=== PATIENT | female | born 1985 | race Caucasian/White ===

== ENCOUNTER → 2019-03-09 12:17 | Outpatient (BNVA) | payer SELFPAY | PROVIDERS: Visit Provider Nurse Practitioner Family | DX: Z34.90 Encounter for supervision of normal pregnancy, unspecified, unspecified trimester (principal) | CPT/HCPCS: 81025; 84703 ==

== ENCOUNTER 2019-12-02 23:18 | Inpatient (IN) | payer SELFPAY ==
[2019-12-02 23:25] VITALS: BP 138/91; PULSE 84; RESP 18; TEMP 37; O2SAT 99; BMI 23.8
[2019-12-02 23:50] LABS: Basophils # 0.1 10^3/uL (0.0-0.1); Eosinophils # 0.2 10^3/uL (0.0-0.8); Eosinophils % 3.1 %; Hematocrit 46.5 % (37.0-47.0); Hemoglobin 14.6 g/dL (11.5-15.3); Lymphocytes # 2.3 10^3/uL (0.8-4.8); Lymphocytes % 37.4 %; Mean Corpuscular HGB Conc 31.4 g/dL (30.0-36.0); Mean Corpuscular Hemoglobin 25.6 pg (28.0-34.0); Mean Corpuscular Volume 81.4 fL (81-99); Mean Platelet Volume 10.1 fL (7.4-10.4); Monocytes # 0.4 10^3/uL (0.2-0.9); Monocytes % 6.1 %; Neutrophils # 3.25 10^3/uL (1.8-7.7); Neutrophils % 52.2 %; Nucleated Red Blood Cells % 0 %; Platelet Count 387 10^3/cmm (130-400); Red Blood Count 5.71 10^6/uL (4.1-5.3); White Blood Count 6.2 10^3/uL (4.0-10.0)
[2019-12-02 23:52] LABS: Urine Color Yellow (Yellow)
[2019-12-02 23:53] LABS: Add Urine Microscopic? YES; Bilirubin Urine Neg (Negative); Blood Urine 3+ (Negative); Glucose Urine UA Norm (Normal); HCG Qualitative Urine. Negative (Negative); Ketones Urine Negative (Negative); Leukocyte Esterase Urine Negative (Negative); Nitrate Urine Negative (Negative); Protein Urine Neg (Negative); Urobilinogen Urine Norm (Negative); pH Urine 5 (5-7)
--- NOTE | 2019-12-02 23:56 | W.ED.PSYCH ---
HPI - Psych General: Chief Complaint: Psychiatric Symptoms Stated Complaint: mhe Time Seen by Provider: 12/02/19 23:41 History of Present Illness: HPI Narrative: 34-year-old female with no prior history of hospitalization for psychiatric illness. She states that she has been depressed for a couple of years, has had transient ideations of suicide since that time. She says that they suddenly became worse tonight. She called the police. She was ready to take an overdose of Tylenol at home. She denies any hallucinations. She had sought help through her therapist Prior. MD complaint: suicidal ideation and feels depressed Onset (ago): hour(s) Duration: constant History of same: Yes Relieving factors: none Exacerbating factors: none Context: recent alcohol abuse Associated psychiatric symptoms: depression and suicidal ideation Associated symptoms: Reports depression and suicidal ideation; Deny auditory hallucinations, visual hallucinations, delusions or homicidal ideation If self harm: admits thoughts of self harm Review of Systems Const: Denies: fever(s) or chills Eyes: Denies: change in vision or blurry vision ENMT: Denies: odynophagia, post nasal drip or sinus pain Card: Denies: chest pain, palpitations or irregular heart rhythm Resp: Denies: dyspnea, productive cough, non-productive cough or wheezing GI: Denies: abdominal pain, nausea or vomiting : Denies: dysuria or hematuria Musc: Denies: neck pain, back pain or joint warmth Skin/Breast: Denies: rash or erythema Neuro: Denies: headache(s), dizziness or vertigo Psych: Reports: depression and suicidal ideation; Denies: visual hallucinations, auditory hallucinations or homicidal ideation [facility] ED PFSH: Social History Smoking and tobacco status: never smoked Alcohol intake: never Sexually active: Yes Current gender identity: Female Female Reproductive History: Date of last menstrual period: 12/02/19 Physical Exam Const: GENERAL APPEARANCE: well developed ORIENTATION/CONSCIOUSNESS: Yes oriented to person, Yes oriented to place and Yes oriented to time HENMT: COMMON NORMALS: normocephalic, external ears normal and Normal external nose present HEAD & SCALP: normocephalic FACE & SINUS: normal facial exam NOSE: Normal external nose present and No nasal discharge present EXTERNAL EAR: Yes external ears normal MOUTH: tongue normal TEETH & GINGIVA: no abnormal tooth and associated gingiva THROAT: posterior oropharynx normal; no peritonsillar mass Eye: COMMON NORMALS: Equal, round and reactive pupils present, EOMs intact bilaterally and conjunctivae normal EYELID: eyelids normal CONJUNCTIVA: Yes conjunctivae normal PUPIL: Yes Equal, round and reactive pupils present Neck/C-Spine: GENERAL: No tracheal deviation Chest: COMMONS NORMALS: normal inspection of the chest CHEST: No tenderness Resp: COMMON NORMALS: clear to auscultation bilaterally EFFORT & INSPECTION: No tachypneic, No respiratory distress, No retractions, No uses accessory muscles and No tracheal deviation AUSCULTATION: clear to auscultation bilaterally, no rhonchi, no wheezes and lung sounds not diminished Cardio: COMMON NORMALS: regular rate and regular rhythm RATE: regular rate RHYTHM: regular rhythm HEART SOUNDS: no murmurs PERIPHERAL PULSES: radial pulses present GI: INSPECTION: No abdominal distension AUSCULTATION: No Hyperactive bowel sounds present and No Hypoactive bowel sounds present PALPATION: No Guarding due to palpation present (GI) and No Rigid due to palpation PERCUSSION: no dullness to percussion and no tympanic to percussion Neuro: SENSORIUM/ORIENTATION: Yes oriented to person, Yes oriented to place and Yes oriented to time Psych: COMMON NORMALS: speech normal APPEARANCE: Yes grossly normal ATTITUDE: Yes calm ACTIVITY/MOTOR BEHAVIOR: Yes psychomotor slowing SPEECH: Yes normal speech MOOD & AFFECT: Yes depressed mood and Yes Flat affect present THOUGHT PROCESS: No disorganized, No confused, no flight of ideas, normal association and not perseverating THOUGHT CONTENT: Yes Suicidality present, No delusions and No Hallucination(s) present ATTENTION/CONCENTRATION: Yes attention grossly intact and Yes concentration grossly intact MEMORY/COGNITION: Yes memory grossly intact and Yes cognition grossly intact INSIGHT: Fair insight present (Psych) JUDGEMENT: Fair judgement present (Psych) Skin: COMMON NORMALS: no rashes or lesions noted GENERAL SKIN EXAM: no rashes or lesions noted MDM - Psych MDM Narrative: Medical decision making narrative: 34-year-old female who is been quite cooperative. She has had thoughts of wanting to harm herself. She had a plan to take an overdose of Tylenol. She called the police at home. Her is here with her now. They remain calm and supportive. She had been drinking earlier. Her alcohol level is only 112. Her other laboratory is stable. There is no other coingestions present Lab Data: Labs: Lab Results 12/02/19 12/02/19 12/02/19 Range/Units 23:45 23:45 23:45 WBC 6.2 (4.0-10.0) 10^3/ uL RBC 5.71 H (4.1-5.3) 10^6/u L Hgb 14.6 (11.5-15.3) g/dL Hct 46.5 (37.0-47.0) % MCV 81.4 (81-99) fL MCH 25.6 L (28.0-34.0) pg MCHC 31.4 (30.0-36.0) g/dL RDW 15.0 (12.1-15.1) % Plt Count 387 (130-400) 10^3/c mm MPV 10.1 (7.4-10.4) fL Neut % (Auto) 52.2 % Lymph % (Auto) 37.4 % [place] % (Auto) 6.1 % Eos % (Auto) 3.1 % Baso % (Auto) 1.0 % Neut # (Auto) 3.25 (1.8-7.7) 10^3/u L Lymph # (Auto) 2.3 (0.8-4.8) 10^3/u L [place] # (Auto) 0.4 (0.2-0.9) 10^3/u L Eos # (Auto) 0.2 (0.0-0.8) 10^3/u L Baso # (Auto) 0.1 (0.0-0.1) 10^3/u L Nucleated RBC % (a uto) 0 % Nucleated RBCs # 0.0 /100WBC Sodium 141 (136-145) mmol/L Potassium 4.3 (3.5-5.1) mmol/L Chloride 103 (98-107) mmol/L Carbon Dioxide 27 (22-29) mmol/L Anion Gap 15.3 (5-19) BUN 9 (6-20) mg/dL Creatinine 0.8 (0.5-0.9) mg/dL GFR Calculation 82.6 L (90-130) mL/min Glucose 116 H (65-115) mg/dL Calculated Osmolal ity 292 (285-295) mOsm/k g Calcium 11.0 H (8.5-10.5) mg/dL Total Bilirubin 0.2 (0.15-1.2) mg/dL AST 16 (0-32) U/L ALT 13 (0-33) U/L Alkaline Phosphata se 67 (35-105) IU/L Total Protein 7.9 (6.6-8.7) g/dL Albumin 5.0 (3.5-5.2) g/dL Globulin 2.9 (1.3-4.6) g/dL HCG, Qual Negative (Negative) Urine Color (Yellow) Urine Appearance (CLEAR) Urine pH (5-7) Ur Specific Gravit y (1.005-1.030) Urine Protein (Negative) Urine Glucose (UA) (Normal) Urine Ketones (Negative) Urine Blood (Negative) Urine Nitrate (Negative) Urine Bilirubin (Negative) Urine Urobilinogen (Negative) mg/dL Ur Leukocyte Esperanza ase (Negative) Urine RBC (0-2) /hpf Urine WBC (0-5) /hpf Ur Squamous Epith Cells (0-5) /hpf Amorphous Sediment Urine Bacteria (NONE) /hpf Salicylates 0.6 L (3-10) mg/dL Urine Opiates Scre en (Negative) ng/mL Acetaminophen < 5.0 L (10-30) ug/mL Ur Barbiturates Sc reen (Negative) ng/mL Ur Phencyclidine S crn (Negative) ng/mL Ur Amphetamines Sc reen (Negative) ng/mL U Benzodiazepines Scrn (Negative) ng/mL Urine Cocaine Scre en (Negative) ng/mL U Marijuana (THC) Screen (Negative) ng/mL Ethyl Alcohol 112 H (0-10) mg/dL 12/02/19 12/02/19 Range/Units 23:45 23:45 WBC (4.0-10.0) 10^3/ uL RBC (4.1-5.3) 10^6/u L Hgb (11.5-15.3) g/dL Hct (37.0-47.0) % MCV (81-99) fL MCH (28.0-34.0) pg MCHC (30.0-36.0) g/dL RDW (12.1-15.1) % Plt Count (130-400) 10^3/c mm MPV (7.4-10.4) fL Neut % (Auto) % Lymph % (Auto) % [place] % (Auto) % Eos % (Auto) % Baso % (Auto) % Neut # (Auto) (1.8-7.7) 10^3/u L Lymph # (Auto) (0.8-4.8) 10^3/u L [place] # (Auto) (0.2-0.9) 10^3/u L Eos # (Auto) (0.0-0.8) 10^3/u L Baso # (Auto) (0.0-0.1) 10^3/u L Nucleated RBC % (a uto) % Nucleated RBCs # /100WBC Sodium (136-145) mmol/L Potassium (3.5-5.1) mmol/L Chloride (98-107) mmol/L Carbon Dioxide (22-29) mmol/L Anion Gap (5-19) BUN (6-20) mg/dL Creatinine (0.5-0.9) mg/dL GFR Calculation (90-130) mL/min Glucose (65-115) mg/dL Calculated Osmolal ity (285-295) mOsm/k g Calcium (8.5-10.5) mg/dL Total Bilirubin (0.15-1.2) mg/dL AST (0-32) U/L ALT (0-33) U/L Alkaline Phosphata se (35-105) IU/L Total Protein (6.6-8.7) g/dL Albumin (3.5-5.2) g/dL Globulin (1.3-4.6) g/dL HCG, Qual (Negative) Urine Color Yellow (Yellow) Urine Appearance Sl cloudy A (CLEAR) Urine pH 5 (5-7) Ur Specific Gravit y 1.020 (1.005-1.030) Urine Protein Neg (Negative) Urine Glucose (UA) Norm (Normal) Urine Ketones Negative (Negative) Urine Blood 3+ H (Negative) Urine Nitrate Negative (Negative) Urine Bilirubin Neg (Negative) Urine Urobilinogen Norm (Negative) mg/dL Ur Leukocyte Esperanza ase Negative (Negative) Urine RBC Too numerous to c nt H (0-2) /hpf Urine WBC None (0-5) /hpf Ur Squamous Epith Cells None (0-5) /hpf Amorphous Sediment Not Reportable Urine Bacteria None (NONE) /hpf Salicylates (3-10) mg/dL Urine Opiates Scre en Negative (Negative) ng/mL Acetaminophen (10-30) ug/mL Ur Barbiturates Sc reen Negative (Negative) ng/mL Ur Phencyclidine S crn Negative (Negative) ng/mL Ur Amphetamines Sc reen Negative (Negative) ng/mL U Benzodiazepines Scrn Negative (Negative) ng/mL Urine Cocaine Scre en Negative (Negative) ng/mL U Marijuana (THC) Screen Negative (Negative) ng/mL Ethyl Alcohol (0-10) mg/dL Discharge Plan Discharge Patient Disposition: Admitted As Inpatient Admit Provider: Jony Gonzalez Clinical Impression: Suicidal ideation Condition: Stable Coding Level of Care Code 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
[2019-12-02 23:59] LABS: Add Urine Culture? Yes; RBC Urine TOO NUMEROUS TO CNT /hpf (0-2)
--- NOTE | 2019-12-03 00:01 | PC.NURSE ---
Patient presents to the ED via Police. Patient reports having a plan of Overdosing on Tylenol tonight. She called the Police stating she needed help and they arrived quickly. Patient states she has been feeling suicidal for the past five years. She states she feels like I've lost my mind . Patient denies recent life stressors, denies any health concerns, no job loss. Patient states, I'm spoiled. I don't have to work. Patient reports adopting her son about four years ago, she states this has helped her. She began seeing a therapist roughly six month ago, she reports she is unsure if it was helping her or not. Denies any psychiatric medications. She states her marriage is extremely stressful. At times she feels like she can do nothing right but other times she feels like the marriage is great. Patient is calm and cooperative while in the ED. NAD noted.
[2019-12-03 00:11] LABS: Alanine Aminotransferase 13 U/L (0-33); Alcohol Level 112 mg/dL (0-10); Alkaline Phosphatase 67 IU/L (35-105); Anion Gap 15.3 (5-19); Aspartate Amino Transferase 16 U/L (0-32); Blood Urea Nitrogen 9 mg/dL (6-20); Carbon Dioxide 27 mmol/L (22-29); Chloride 103 mmol/L (98-107); Creatinine Clr Calc Pharmacy 84.7079; Globulin 2.9 g/dL (1.3-4.6); Glomerular Filtration Rate 82.6 mL/min (90-130); Glucose 116 mg/dL (65-115); Osmolality Calculated 292 mOsm/kg (285-295); Potassium 4.3 mmol/L (3.5-5.1); Salicylate 0.6 mg/dL (3-10); Sodium 141 mmol/L (136-145); Total Bilirubin 0.2 mg/dL (0.15-1.2); Total Protein 7.9 g/dL (6.6-8.7)
[2019-12-03 00:14] LABS: Acetaminophen < 5.0 ug/mL (10-30)
[2019-12-03 00:15] LABS: Amphetamines Screen Urine Negative (Negative); Barbiturates Screen Urine Negative (Negative); Benzodiazepines Screen Urine Negative (Negative); Cocaine Screen Urine Negative (Negative); Opiate Screen Urine Negative (Negative); PCP Screen Urine Negative (Negative); THC Screen Urine Negative (Negative)
[2019-12-03 01:10] VITALS: BP 115/71; PULSE 82; RESP 16; TEMP 36.7; O2SAT 96
[2019-12-03 06:00] VITALS: BP 130/85; PULSE 73; RESP 15; TEMP 37; O2SAT 97
[2019-12-03 14:00] VITALS: BP 138/85; PULSE 96; RESP 18; TEMP 36.3
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
[2019-12-03 14:52] VITALS: BP 138/85; PULSE 96; RESP 18; TEMP 36.3
== END 2019-12-03 16:23 | disposition home or self-care (01) | DRG 882 ==
LOC: ER 12-03 00:35 → NP 12-03 00:59
PROVIDERS: Admitting Provider Psychiatry & Neurology Psychiatry; Emergency Provider Emergency Medicine; Visit Provider Psychiatry & Neurology Psychiatry
DX: F43.25 Adjustment disorder with mixed disturbance of emotions and conduct (principal); R45.851 Suicidal ideations; F32.9 Major depressive disorder, single episode, unspecified; F68.8 Other specified disorders of adult personality and behavior
CPT/HCPCS: 12345; 80053; 80306; 80307; 81001; 81025; 85025; 87086; 99284

== ENCOUNTER → 2022-02-14 14:47 | Outpatient (BNVA) | payer MEDICAID, SELFPAY | PROVIDERS: Visit Provider Emergency Medicine | DX: Z34.90 Encounter for supervision of normal pregnancy, unspecified, unspecified trimester (principal) | CPT/HCPCS: 81025 ==